=== PATIENT | female | born 1960 | race Caucasian/White ===

== ENCOUNTER 2017-01-11 19:00 | Observation (INO) | payer OTHER ==
[2017-01-11] MEDS ORDERED: ASPIRIN 325 MG TAB PO SCH (19:45)
[2017-01-11] MEDS ORDERED: DEXTROSE 50% IN WATER 50 ML VIAL(D50) IV PUSH PRN (19:45)
[2017-01-11] MEDS ORDERED: TEMAZEPAM 15 MG CAP PO PRN (19:45)
[2017-01-11] MEDS ORDERED: cloNIDine HCL 0.1 MG TAB PO PRN (19:45)
[2017-01-11] MEDS ORDERED: GLUCAGON 1 MG/ML VIAL OTHER PRN (19:45)
[2017-01-11] MEDS ORDERED: NITROGLYCERIN 0.4 MG SL 25 TABS/BTL SL PRN (19:45)
[2017-01-11] MEDS ORDERED: NALOXONE HCL 0.4 MG/ML AMP IV PRN (19:45)
[2017-01-11 20:00] VITALS: BP 145/82; PULSE 104; PULSE 84; RESP 16; TEMP 97.7; O2SAT 84; O2SAT 97
[2017-01-11] MEDS ORDERED: PILL SPLITTER OTHER PRN (20:15)
[2017-01-11 21:00] VITALS: PULSE 90
[2017-01-11] MEDS: INSULIN NovoLIN REGULAR SUPPLEMENTAL SCALE SQ SCH (21:00)
[2017-01-11] MEDS ORDERED: ATORVASTATIN 10 MG TAB PO SCH (21:00)
[2017-01-11 21:01] LABS: AUTOMATED NEUTROPHIL # 5.3 TH/MM3 (1.8-7.7); BASOPHIL % 0.6 % (0.0-2.0); EOSINOPHIL # 0.1 TH/MM3 (0-0.4); EOSINOPHIL % 1.6 % (0.0-4.0); HEMATOCRIT 41.1 % (35.0-46.0); HEMO FLAGS DIFF FINAL; LYMPH % 28.5 % (9.0-44.0); LYMPHOCYTE # 2.4 TH/MM3 (1.0-4.8); MEAN CORPUSCULAR HEMOGLOBIN 28.5 PG (27.0-34.0); MEAN CORPUSCULAR HGB CONC 33.9 % (32.0-36.0); MONO % 7.2 % (0.0-8.0); NEUT % 62.1 % (16.0-70.0); PLATELET COUNT 244 TH/MM3 (150-450); RED BLOOD COUNT 4.89 MIL/MM3 (4.00-5.30); RED CELL DISTRIBUTION WIDTH 14.4 % (11.6-17.2); WHITE BLOOD COUNT 8.6 TH/MM3 (4.0-11.0)
[2017-01-11 21:08] LABS: PROTHROMBIN TIME - PATIENT 10.7 SEC (9.8-11.6)
[2017-01-11] MEDS: SODIUM CHLOR 0.9% 1000 ML INJ 1,000 ML IV SCH (21:09)
[2017-01-11] MEDS: METOPROLOL TARTRATE 25 MG TAB PO SCH (21:10)
[2017-01-11 21:18] LABS: BICARBONATE 27.1 MEQ/L (21.0-32.0); POTASSIUM 3.5 MEQ/L (3.5-5.1)
[2017-01-11 21:29] LABS: HDL CHOLESTEROL 44.9 MG/DL (40.0-60.0)
[2017-01-11 22:00] VITALS: PULSE 100
[2017-01-11 23:00] VITALS: PULSE 76
[2017-01-12] VITALS (10 sets, daily range): BP systolic 127–159; BP diastolic 74–89; PULSE 62–86; RESP 16–18; TEMP 97.7–98.8; O2SAT 94–96
[2017-01-12] MEDS: INSULIN NovoLIN REGULAR SUPPLEMENTAL SCALE SQ SCH ×3 (04:48→15:55)
[2017-01-12] MEDS: SODIUM CHLOR 0.9% 1000 ML INJ 1,000 ML IV SCH (04:50)
[2017-01-12] MEDS: METOPROLOL TARTRATE 25 MG TAB PO SCH (09:02)
--- NOTE | 2017-01-12 09:02 | PD.CARD.PN ---
Subjective Subjective Remarks no complaints CP resolved. Objective Medications Active Medications Atorvastatin Calcium (Lipitor) 10 mg HS PO Last administered on 01/11/17 21:09; Admin Dose 10 MG; Start 01/11/17 at 21:00 Clonidine (Catapres) 0.1 mg Q6H PRN PO; Start 01/11/17 at 19:45 Dextrose (D50w (Vial) Inj) 25 ml UNSCH PRN IV PUSH; Start 01/11/17 at 19:45 Glucagon (Glucagon Inj) 1 mg UNSCH PRN OTHER; Start 01/11/17 at 19:45 Metoprolol Tartrate (Lopressor) 12.5 mg BID PO Last administered on 01/11/17 21: 10; Admin Dose 12.5 MG; Start 01/11/17 at 21:00 Miscellaneous (Pill Splitter) 1 ea UNSCH PRN OTHER; Start 01/11/17 at 20:15 Naloxone HCl (Narcan Inj) 0.4 mg UNSCH PRN IV; Start 01/11/17 at 19:45 Nitroglycerin (Nitrostat Sl) 0.4 mg Q5M PRN SL; Start 01/11/17 at 19:45 Sodium Chloride (NS 1000 ml Inj) 1,000 ml @ 100 mls/hr Q10H IV Last administered on 01/12/17 04:50; Admin Dose 100 MLS/HR; Start 01/11/17 at 19:35; Stop 01/16/17 at 19:34 Temazepam (Restoril) 15 mg HS PRN PO; Start 01/11/17 at 19:45 Vital Signs / I&O Vital Signs Date Time Temp Pulse Resp B/P Pulse Ox O2 Delivery O2 Flow Rate FiO2 01/12/17 06:00 86 01/12/17 05:00 70 01/12/17 04:00 97.7 72 16 149/82 96 01/12/17 04:00 62 01/12/17 03:00 70 01/12/17 02:00 66 01/12/17 01:00 74 01/12/17 00:00 98.0 77 16 127/74 96 01/12/17 00:00 75 01/11/17 23:00 76 01/11/17 22:00 100 01/11/17 21:00 90 01/11/17 20:00 97.7 84 16 145/82 97 01/11/17 20:00 104 I/O 01/11/17 01/11/17 01/11/17 01/12/17 01/12/17 01/12/17 07:00 15:00 23:00 07:00 15:00 23:00 Intake Total 480 ml Output Total 800 ml Balance -320 ml Intake Oral 480 ml Output Urine Total 800 ml Physical Exam GENERAL: SKIN: Warm and dry. HEAD: Normocephalic. EYES: No scleral icterus. No injection or drainage. NECK: Supple, trachea midline. No JVD or lymphadenopathy. CARDIOVASCULAR: Regular rate and rhythm without murmurs, gallops, or rubs. RESPIRATORY: Breath sounds equal bilaterally. No accessory muscle use. GASTROINTESTINAL: Abdomen soft, non-tender, nondistended. MUSCULOSKELETAL: No cyanosis, or edema. BACK: Nontender without obvious deformity. No CVA tenderness. Laboratory Laboratory Tests Test 01/11/17 20:05 White Blood Count 8.6 TH/MM3 Red Blood Count 4.89 MIL/MM3 Hemoglobin 13.9 GM/DL Hematocrit 41.1 % Mean Corpuscular Volume 84.0 FL Mean Corpuscular Hemoglobin 28.5 PG Mean Corpuscular Hemoglobin 33.9 % Concent Red Cell Distribution Width 14.4 % Platelet Count 244 TH/MM3 Mean Platelet Volume 9.7 FL Neutrophils (%) (Auto) 62.1 % Lymphocytes (%) (Auto) 28.5 % Monocytes (%) (Auto) 7.2 % Eosinophils (%) (Auto) 1.6 % Basophils (%) (Auto) 0.6 % Neutrophils # (Auto) 5.3 TH/MM3 Lymphocytes # (Auto) 2.4 TH/MM3 Monocytes # (Auto) 0.6 TH/MM3 Eosinophils # (Auto) 0.1 TH/MM3 Basophils # (Auto) 0.0 TH/MM3 CBC Comment DIFF FINAL Differential Comment Prothrombin Time 10.7 SEC Prothromb Time International 1.0 RATIO Ratio Sodium Level 140 MEQ/L Potassium Level 3.5 MEQ/L Chloride Level 104 MEQ/L Carbon Dioxide Level 27.1 MEQ/L Anion Gap 9 MEQ/L Blood Urea Nitrogen 12 MG/DL Creatinine 0.82 MG/DL Estimat Glomerular Filtration 72 ML/MIN Rate Random Glucose 123 MG/DL Calcium Level 9.0 MG/DL Triglycerides Level 150 MG/DL Cholesterol Level 184 MG/DL LDL Cholesterol 109 MG/DL HDL Cholesterol 44.9 MG/DL Cholesterol/HDL Ratio 4.09 RATIO Thyroid Stimulating Hormone 0.150 uIU/ML 3rd Gen Assessment and Plan Assessment and Plan unstable angina - suggestive symptoms and risk factors. plan for [facility] today TSH low. check free T4. then will discuss with hospitalist Keaton Miner MD January 12, 2017 09:02
[2017-01-12 10:24] LABS: FREE T4 1.27 NG/DL (0.76-1.46)
[2017-01-12] MEDS ORDERED: IOHEXOL 350 MG/ML 100 ML BTL (for Cath Lab) OTHER ONE ×2 (14:04→14:45)
[2017-01-12] MEDS ORDERED: MIDAZOLAM HCL 5 MG/5 ML VIAL ONE (14:12)
[2017-01-12] MEDS ORDERED: HEPARIN SODIUM - IV 10,000 UNITS/10 ML VIAL ONE (14:12)
[2017-01-12] MEDS ORDERED: NITROGLYCERIN INJ 5 ML ONE (14:12)
[2017-01-12] MEDS ORDERED: MISC INFORMATION XX ONE (14:45)
[2017-01-12] MEDS ORDERED: BACITRACIN OINT 0.9 GM PKT TOP ONE (14:45)
[2017-01-12] MEDS ORDERED: ATOR20TA15 PO (14:48)
--- NOTE | 2017-01-12 14:54 | CATHPROC ---
[facility] HIS Report Study Information Study Number Scheduled Start Study Start 903-17 01/12/2017 Jan 12 2017 2:04PM Referring Institution Admit Source Facility Department 1 Other [facility] - [facility] Operator Physician and Clinical Staff Initial Keaton Little Intermediate Accountant Agnes Davila,RN Recorder Evgeny Reyes RCIS(BS) Scrub Ihsan Rahman,RT(R) Procedures Performed Procedure Location (Site) Vessel Name Coronary Angiograms LCA Left Coronary Coronary Angiograms RCA Right Coronary L Heart Cath LV Gram-hand inj. LV LV Ventricle Equipment Time Check Services Clerk Description Size Mfg Part Number Used/Scraped TRANSDUCER, TRUWAVE 14:14 PANCHAL CAMILO * [id number] Used W/STOCKCOCK [id number] *[id number] PIGTAIL ANG. 145 INFINITI [id number] CATHETER *[id number] MEDICAL CONCEPT DRAPE, RADIAL FEMORAL FULL 14:14 * [id number] Used DEVELOPMENT BODY 14:14 [employer] INDUSTRIES PACK, CCL CUSTOM * [id number] Used 14:14 [employer] SUPPORT, ARTERIAL ADULT [id number] Used 14:14 [employer] PACER PEN, SKIN DUAL W/ RULER * [id number] Used BAND, RADIAL COMPRESSION TR 14:50 IntegenX 29CM [id number] Used LARGE 29 SHEATH, FR6 RADIAL PRELUDE 14:14 IntegenX FR 6 [id number] Used EASE 11CM [id number] 14:14 IntegenX WIRE, EXCHANGE 260CM 3MMJ 260CM Used *[id number] 14:14 NYCOMED OMNIPAQUE, 350 MG, 100ML 100ML [id number] Used 14:37 NYCOMED OMNIPAQUE, 350 MG, 150ML 150ML [id number] Used 14:14 Numbrs AG BLANKET,WARM AIR CCL * [id number] Used History: Allergies Allergy Reaction No Known Allergies History: Risk Factors Family History of Hypertension Dyslipidemia Previous IA Previous Heart Failure Premature CAD Yes Yes No No No Prior Valve Prior PCI Prior CABG Surgery No No No Cerebrovascular Peripheral Artery Chronic Lung On Dialysis Diabetes Diabetes Therapy Disease Disease Disease No No No No Yes Oral History: Symptoms/Diagnosis Selection Items Chest pain History: Stress Tests Stress or Imaging Studies Performed No History: Other Current Smoker No Labs Hgb (g/dl) Hct (%) RBC (MIL/MM3) WBC (l/cumm) Platelets (thousands) 12.00-18.00 37.00-55.00 4.80-6.20 4.80-10.80 140.00-450.00 13.9 41.1 4.8 8.6 244 Glucose (mg/dl) BUN (mg/dl) Creatinine (mg/dl) BUN:Creatinine (1:x) 60.00-110.00 8.00-20.00 0.10-9.00 10.00-20.00 123 12 0.8 15 Na (meq/l) K (meq/l) 138.00-146.00 3.80-5.10 140 3.5 PT (sec) INR (PTT:PT) 9.40-11.40 0.50-2.00 10.7 1 CPK-MB (ng/ML) 0.00-7.00 Not Drawn Medication Medication Total Dose (Bolus/Oral) Medication Total Dosage/Unit 1% XYLOCAINE 10 mL FENTANYL 75 mcg HEPARIN 3000 units RADIAL COCKTAIL 5 mL (Bolus) VERSED 3 mg Medications (Bolus/Oral) Medication Time Given Dosage/Unit Administered By Reason VERSED 01/12/2017 2:31:00 PM 1 mg Agnes Davila 1 mg VERSED given in lab by Agnes Davila RN in Left Forearm via Peripheral IV. Ordered by Keaton Miner. FENTANYL 01/12/2017 2:32:39 PM 50 mcg Rowena Daivlafer 50 mcg FENTANYL given in lab by Agnes Davila RN in Left Forearm via Peripheral IV. Ordered by Keaton Cope. 1% XYLOCAINE 01/12/2017 2:34:49 PM 10 mL Keaton Miner 10 mL 1% XYLOCAINE given in lab by Keaton Miner in Right Radial via Subcutaneous. Ordered by Keaton Miner. VERSED 01/12/2017 2:35:00 PM 2 mg Soniya Davilanifer 2 mg VERSED given in lab by Agnes Davila RN in Left Forearm via Peripheral IV. Ordered by Keaton Miner. FENTANYL 01/12/2017 2:36:00 PM 25 mcg Soniya Davilanifer 25 mcg FENTANYL given in lab by Agnes Davila RN in Left Forearm via Peripheral IV. Ordered by Keaton Cope. RADIAL COCKTAIL 01/12/2017 2:36:13 PM 5 mL (Bolus) Keaton Miner 5 mL (Bolus) RADIAL COCKTAIL given in lab by Keaton Miner in Right Radial via Radial. Using [Soluti on Name]. Ordered by Keaton Miner. 200 MCG NITRO HEPARIN 01/12/2017 2:37:00 PM 3000 units Agnes Davila 3000 units HEPARIN given in lab by Agnes Davila, RN in Left Forearm via Peripheral IV. Ordered by Keaton Miner. Medication (Drip) Medication Time Given Dosage/Unit Concentration/Unit Diluent (ml) Solution IV Solutions 01/12/2017 2:04:44 PM 0 mL (IV) NaCl .9 Patient arrived on IV Solutions in Left Forearm via Peripheral IV. Pump/Drip Flow = 20 ml/hr using Na Cl .9. Initial Case Assessment Cardiovascular HR Rhythm NIBP Chest Pain 69 SR 176/87 0 Edema Present Skin color Skin Mild Normal Warm Dry Circulatory - Right Pulses Dorsalis Pedis Femoral Radial 2 1 2 Scale (0,1,2,3,4,d) Circulatory - Left Pulses Dorsalis Pedis Femoral Radial 2 2 Scale (0,1,2,3,4,d) Circulatory - Lower Extremities Color Lower Right Color Lower Left Normal Normal Neurological State Oriented to time-place- Alert Moves all extremities person Respiration - General Respiration Rate SpO2 (%) (B/min) 18 98 Final Case Assessment Cardiovascular HR Rhythm NIBP Chest Pain 69 SR 175/78 0 Edema Present Skin color Skin Mild Normal Warm Dry Circulatory - Right Pulses Dorsalis Pedis Femoral Radial 2 1 2 Scale (0,1,2,3,4,d) Circulatory - Left Pulses Dorsalis Pedis Femoral Radial 2 2 Scale (0,1,2,3,4,d) Circulatory - Lower Extremities Color Lower Right Color Lower Left Normal Normal Neurological State Oriented to time-place- Alert Moves all extremities person Respiration - General Respiration Rate SpO2 (%) (B/min) 18 98 Chronological Log Time Study Chronological Log 14:04:30 Patient arrived via Bed. 14:04:31 Patient Name, D.O.B, / Armband Verified By R.N. 14:04:32 Consent signed by the physician and the patient and verified by the Sewage Treatment Plant Operator staff. 14:04:33 Pre-op and post- op instructions given; patient acknowledges understanding of instructions. 14:04:38 Allens test performed on the right radial and ulnar artery. 14:04:39 Patient has been NPO for Less than 6Hrs. 14:04:40 Skin Breakdown- 14:04:41 Patient Warmer Placed on the Table. 14:04:43 A # 20 IV was noted in the Forearm (left). Grade = 0 14:04:44 Patient arrived on IV Solutions in Left Forearm via Peripheral IV. Pump/Drip Flow = 20 ml/h r using NaCl .9. 14:04:45 History and physical on the chart or being dictated. Assessment: Initial Case, HR=69 BPM, Rhythm=SR, LBPG=535/87 mmhg, Chest Pain=0, Edema=Mild, Col or=Normal, Skin = Warm, Dry Right Pulses: Manolo Ped=2, Femoral=1, Radial=2 Left Pulses: Manolo Ped=2, Femoral=2 14:04:47 Lower Right Extremities: Color=Normal Lower Left Extremities: Color=Normal Neurological: State=Alert, Ox3, SALAS Respiration: Resp=18 B/min, SpO2=98 % Vitals capture started with the following parameters, Patient=Adult, Interval=15 min, Initial P xjriudm=201 mmHg, 14:08:08 Deflation Rate=5 mmHg Vitals capture started with the following parameters, Patient=Adult, Interval=15 min, Initial P vaejwtv=038 mmHg, 14:09:49 Deflation Rate=5 mmHg 14:09:55 Reference ECG taken 14:10:01 Reference ECG taken 14:11:11 HR=70 bpm, WAPC=035/87 mmhg, SpO2=97.0 %, Resp=37 B/min, Pain=0, Sherif=10, Chang=2 14:16:10 HR=56 bpm, YAJN=520/82 mmhg, SpO2=97.0 %, Resp=15 B/min, Pain=0, Sherif=10, Chang=2 14:20:34 HR=75 bpm, CBVM=617/104 mmhg, SpO2=96.0 %, Resp=17 B/min, Pain=0, Sherif=10, Chang=2 14:23:11 Pressure channel 1 zeroed. 14:26:20 HR=64 bpm, OALT=393/88 mmhg, LkC8=826.0 %, Resp=11 B/min, Pain=0, Sherif=10, Chang=2 14:30:36 HR=62 bpm, QUOZ=511/93 mmhg, YxJ1=582.0 %, Resp=16 B/min, Pain=0, Sherif=10, Chang=2 14:31:00 MD arrived. 14:31:00 1 mg VERSED given in lab by Agnes Davila RN in Left Forearm via Peripheral IV. Ordered by Keaton Miner. 14:32:04 MD paged 14:32:39 50 mcg FENTANYL given in lab by Agnes Davila RN in Left Forearm via Peripheral IV. Orde red by Keaton Miner. Time Out. Correct patient, correct procedure,correct physician, power injector not loaded with contrast with surgical 14:34:04 team present. Time Out Concurred by , individual staff in procedure 14::37 Case Start 14::49 10 mL 1% XYLOCAINE given in lab by Keaton Miner in Right Radial via Subcutaneous. Ordered by Keaton Miner. 14:35:00 2 mg VERSED given in lab by Agnes Davila RN in Left Forearm via Peripheral IV. Ordered by Keaton Miner. 14:35:03 Access site was RIGHT Radial Artery. 14:35:37 HR=58 bpm, MBSG=271/74 mmhg, SpO2=98.0 %, Resp=17 B/min, Pain=0, Sherif=10, Chang=2 14:36:00 25 mcg FENTANYL given in lab by Agnes Davila RN in Left Forearm via Peripheral IV. Orde red by Keaton Miner. A SHEATH, FR6 RADIAL PRELUDE EASE 11CM FR 6 was advanced into the Radial (right) using the Perc utaneous 14:36:08 technique. 5 mL (Bolus) RADIAL COCKTAIL given in lab by Keaton Miner in Right Radial via Radial. Using [ Solution Name]. 14:36:13 Ordered by Keaton Miner. 200 MCG NITRO 14:37:00 3000 units HEPARIN given in lab by Agnes Davila RN in Left Forearm via Peripheral IV. O rdered by Keaton Miner. A JR 5.0 INFINITI CATHETER FR 6 was advanced over a wire. OMNIPAQUE, 350 MG, 150ML 150ML was us ed for 14:37:11 injections. Recorded Pressure: LV, HR=64, Condition=Condition 1 14:37:57 (Left Ventricle) LV 133/6/16 14:38:13 The LV was manually injected with 8 cc's and visualized. OMNIPAQUE, 350 MG, 150ML 150ML use d. Recorded Pressure: LV, Ao, HR=64, Condition=Condition 1 14:38:35 (Left Ventricle) LV 130/12/19, (Aorta) Ao 123/74/96 Recorded Pressure: Ao, HR=67, Condition=Condition 1 14:38:56 (Aorta) Ao 136/79/103 14:39:05 The RCA was injected and visualized at various angles. OMNIPAQUE, 350 MG, 150ML 150ML used . After removing the current catheter a JL 3.5 INFINITI CATHETER FR 6 was advanced over a WIRE, E XCHANGE 260CM 14:39:18 3MMJ 260CM. 14:40:05 The LCA was injected and visualized at various angles. OMNIPAQUE, 350 MG, 150ML 150ML use d. 14:40:38 HR=61 bpm, KXOV=513/70 mmhg, SpO2=96.0 %, Resp=16 B/min, Pain=0, Sherif=10, Chang=2 14:42:43 Catheter was removed 14:43:00 Case End 14:45:39 HR=74 bpm, KTZA=219/78 mmhg, SpO2=98.0 %, Resp=5 B/min, Pain=0, Sherif=10, Chang=2 14:47:36 Vitals capture stopped. Radial Compression Device Used. 13 mLs of air placed in BAND, RADIAL COMPRESSION TR LARGE 29 2 9CM. Affected 14:49:27 hand 98 % O2 saturation. Assessment: Final Case, HR=69 BPM, Rhythm=SR, BTRE=249/78 mmhg, Chest Pain=0, Edema=Mild, [place] r=Normal, Skin = Warm, Dry Right Pulses: Manolo Ped=2, Femoral=1, Radial=2 Left Pulses: Manolo Ped=2, Femoral=2 14:49:58 Lower Right Extremities: Color=Normal Lower Left Extremities: Color=Normal Neurological: State=Alert, Ox3, SALAS Respiration: Resp=18 B/min, SpO2=98 % 14:50:51 Sterile dressing applied to site 14:50:52 No case complications noted. 14:50:53 Cine recording checked. 14:50:57 Contrast Scanned 14:51:07 A Left Heart Cath was performed. 14:51:08 [facility] Study - Contrast Media Used In Study Contrast Total Opened (mL) Total Used (mL) Total Wasted (mL) Omnipaque 90 90 0 End Study - Maximum Contrast Load Max Contrast Load (mL) 762.5 End Study - Radiation Exposure Fluoro Time (minutes) 1.9 End Study - Patient Disposition Complications Transferred To Telemetry Bed
--- NOTE | 2017-01-12 15:10 | MA ---
cc: ASCENCION NUNEZ DATE: 01/12/2017 INDICATION Unstable angina. PROCEDURE PERFORMED 1. Fluoroscopy with interpretation. 2. Coronary angiography. 3. Left heart catheterization. 4. Left ventriculography. METHOD The risks, benefits and alternatives were discussed with the patient. The patient understood and consented to the procedure. The patient was brought into the catheterization lab and placed on the catheterization table. The right wrist was prepped and draped in a sterile fashion. The right wrist was anesthetized with 2% lidocaine. The right radial artery was cannulated and a 6-Togolese, 7 cm sheath was placed without difficulty. LEFT HEART CATHETERIZATION A 6-Togolese JR5 catheter was advanced across the aortic valve without difficulty. Intraventricular hemodynamics measured at 130/12 mmHg. LEFT VENTRICULOGRAPHY Left ventriculography was performed in a right anterior oblique view using a 6-Togolese angled pigtail catheter and 6-Togolese JR5 catheter with 12 cc contrast injection and good opacification. Left ventricular ejection fraction visually estimated at 60% without regional wall motion abnormalities. CORONARY ANGIOGRAPHY 1. The left main coronary is angiographically normal. 2. The left anterior descending coronary is angiographically normal. 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 3. The left circumflex has a 20% proximal stenosis. The remainder of the vessel is widely patent. 4. The right coronary is a dominant vessel giving rise to a posterior descending branch and widely patent. CONCLUSIONS 1. Mild nonobstructive coronary disease. 2. Normal left ventricular systolic function and left-sided filling pressures. PLAN Will continue with her current medical regimen with the addition of atorvastatin. Her symptoms appear to be noncardiac in origin. They have now resolved and may have been GI related. Will have her follow-up with her primary care for any further symptoms. MD NIDIA Aguilar/MAURIZIO /2:53 PM /2:59 PM
--- NOTE | 2017-01-12 19:17 | EKG ---
Date Performed: 01/12/2017 Time Performed: 08:50:36 PTAGE: 56 years EKG: Sinus rhythm . Poor R wave progression - probable normal variant Low QRS voltages in precordial leads Borderline E CG NO PREVIOUS TRACING DOCTOR: Jan Silver Interpretating Date/Time 01/12/2017 19:15:44
== END 2017-01-12 20:10 | disposition home or self-care (01) ==
LOC: HCIS 19:00
PROVIDERS: ADMIT Internal Medicine; ATTEND Internal Medicine
DX: I25.110 Atherosclerotic heart disease of native coronary artery with unstable angina pectoris (principal); R94.6 Abnormal results of thyroid function studies
CPT/HCPCS: 80048; 80061; 82948; 84439; 84443; 84484; 85025; 85610; 93005; 93458; C1769; C1893; G0378; J1644; J2250; J3010; J7030; Q9967

== ENCOUNTER → 2018-01-19 | Day surgery (SDC) | payer OTHER ==
[~2018-01-19] VITALS: Ht 158.8 cm; Wt 122.5 kg
[~2018-01-19] MED LIST: ACETAMINOPHEN/HYDROcodone 325 MG/5 MG TAB ONE; ATOR20TA15 PO; BUPIVACAINE HCL PF 0.5% 10 ML VIAL ONE; BUPR150XL PO; CETI10 PO; CHLORHEXIDINE GLUCONATE 2 % 1 PACK (2 CLOTHS) TOPICAL PRN; CIPR250T52 PO; CIPROFLOXACIN 400 MG PREMIX 200 ML ONE; ENAL5TAB5 PO; HYDR-3288 PO; LACTATED RINGER'S 1000 ML IV PRN; LIDOCAINE HCL 2% 50 ML VIAL ONE; METF-382 PO; METOPROLOL TARTRATE 25 MG TAB PO PRN; MIDAZOLAM HCL 2 MG/2 ML VIAL ONE; NEOMYCIN/POLYMYXIN 1 ML G.U. IRRIGANT ONE; POVIDONE IODINE 5% (ANTISEPSIS KIT) 4 APPLICATIONS EACH NARE PRN; RANI150T PO; SODIUM CHLORID 0.9% 500 ML IV PRN; TRIAMCINOLONE ACETONIDE 40 MG/ML VIAL ONE; VITA2000 PO; ceFAZolin 2 GM/DEX PREMIX 50 ML IV SCH
--- NOTE | 2018-01-19 11:35 | MP ---
cc: Jose Rubin MD DATE OF OPERATION: 01/19/2018 PREOPERATIVE DIAGNOSIS: Bilateral carpal tunnel syndrome. PROCEDURE PERFORMED: 1. Left open carpal tunnel release. 2. Right carpal tunnel steroid injection. SURGEON: Jose Rubin III, DESCRIPTION OF PROCEDURE: The patient was brought to the operating room and placed supine on the operating table. After the correct site and side of surgery were verified by the members of each team in the room multiple times and after adequate IV sedation had been achieved, the left upper extremity was prepped and draped in traditional sterile surgical fashion. A 50:50 mixture of 2% lidocaine and 0.5% plain Marcaine was infiltrated in the skin and subcutaneous tissue and into the carpal tunnel. The limb was exsanguinated with an Petr wrap and a highly placed well-padded tourniquet was inflated to 200 mmHg for a total of 10 minutes. A longitudinally oriented incision at the base of the palm was made within the skin creases, carried down through skin and subcutaneous tissue. Palmar fascia was retracted in opposite directions. The transverse carpal ligament was identified and transected at the ulnar side of its midline in its entirety, completely freeing the carpal tunnel contents. There was noticeable rebound by the median nerve. There was a moderately hypertrophic tenosynovium. There was evidence of any mass effect or other anatomic abnormality and everything seemed to be in continuity. The wound was thoroughly irrigated with 1 liter's worth of saline and the skin edges were reapproximated using a running 4-0 nylon suture. The hand and arm were sterilely cleansed and dried. Betadine and Adaptic dressings were applied on top of the wound, followed by a bulky soft dressing from the volar distal forearm into the palm and then a circumferential wrap in the usual fashion. The axillary tourniquet was released. The hand and all fingers became immediately soft, pink and warm and had brisk capillary refill of less than 2 seconds. There was no evidence of any bleeding or hematoma formation. The right carpal tunnel was sterilely injected in the usual fashion with a 2:1 mixture of 1% plain lidocaine and Kenalog 40 mg/mL A Band-Aid was held. There was no bleeding. Capillary refill was less than 2 seconds in all fingertips. The patient was awakened from anesthesia and transported to the Postanesthesia Care Unit awake and in stable condition at the end of the case. Sponge, needle and instrument counts were correct at the end of the case was reported by the nurses in the room. MD CEASAR Fernández/SOHEILA , 11:09 AM , 11:34 AM
[2018-01-19 12:30] VITALS: BP 144/75; PULSE 86; RESP 18; TEMP 97.7; O2SAT 99
--- NOTE | 2018-01-20 11:45 | EKG ---
Date Performed: 01/19/2018 Time Performed: 09:24:26 PTAGE: 57 years EKG: Sinus rhythm NORMAL ECG PREVIOUS TRACING : 01/12/2017 08.50 DOCTOR: Roderick Gambino Interpretating Date/Time 01/20/2018 11:43:03
== END | disposition home or self-care (01) ==
LOC: PHSDC 08:46
PROVIDERS: ATTEND Orthopaedic Surgery Hand Surgery
DX: G56.03 Carpal tunnel syndrome, bilateral upper limbs (principal); I10 Essential (primary) hypertension
CPT/HCPCS: 01810; 20526; 64721; 93005; J0744; J2250; J3010; J3301; J7120